=== PATIENT | female | born 1970 | race Caucasian/White ===

== ENCOUNTER 2016-07-02 18:27 | Emergency (ER) | payer SELFPAY ==
[~2016-07-02] VITALS: Ht 170.2 cm; Wt 122.7 kg
[~2016-07-02 18:27] MED LIST: ABILIFY10 MG PO; FLUOXETINE HCL20 MG PO; FLUOXETINE HCL40 MG PO; INDERAL10 MG PO; KLONOPIN0.5 M1 PO; LAMICTAL200 MG PO; LAMICTAL25 MG PO; LEVAQUIN750 MG PO; LITHIUM CARBON300 M1 PO; LITHIUM CARBON300 MG PO; LITHIUM CARBON600 MG PO; LYSTEDA650 MG PO; MACROBID100 MG PO; PERCOCET 5/31 TABLET PO; PROZAC40 MG PO; QUETIAPINE FUM300 MG PO; SEROQUEL200 MG PO; SEROQUEL300 MG PO; TOPAMAX100 MG PO; TOPAMAX200 MG PO; TOPAMAX25 MG PO; TOPAMAX50 MG PO; TYLENOL REGULA325 MG PO; VENTOLIN HFA18 GM IH; ZOLPIDEM TARTRA10 MG PO
[2016-07-02 20:48] VITALS: BP 110/70
== END 2016-07-02 20:49 | disposition home or self-care (01) ==
LOC: EME 18:27
PROC: 09C37ZZ Extirpation of Matter from Right External Auditory Canal, Via Natural or Artificial Opening (ICD-10-PCS; principal; 2016-07-02)
PROC: 09C47ZZ Extirpation of Matter from Left External Auditory Canal, Via Natural or Artificial Opening (ICD-10-PCS; 2016-07-02)
DX: H61.23 Impacted cerumen, bilateral (principal)
CPT/HCPCS: 99281; 99283

== ENCOUNTER 2016-07-04 17:52 | Emergency (ER) | payer SELFPAY ==
[~2016-07-04] VITALS: Ht 170.2 cm; Wt 118.0 kg
[2016-07-04] MEDS ORDERED: MOTRIN800 MG PO (21:31)
[2016-07-04] MEDS ORDERED: ZITHROMAX Z-PA250 MG PO (21:31)
[2016-07-04 21:43] VITALS: BP 107/69
== END 2016-07-04 21:44 | disposition home or self-care (01) ==
LOC: EME 17:52
DX: H66.93 Otitis media, unspecified, bilateral (principal)
CPT/HCPCS: 99281; 99284